=== PATIENT | female | born 1955 | race Caucasian/White ===

== ENCOUNTER → 2017-02-11 | Outpatient (CLI) | payer OTHER ==
[~2017-02-11] MED LIST: ASP81TEC; ASP81TEC PO; CARV12.53 PO; CLOP75TA PO; CYAN100021 PO; FRS325T; HCT25T; HYDR-622 PO; MTP100TCR; NF-ESOM40C; OMEG1CAP51 PO; OMG1KC; PNT40TEC PO; POTA20TA15 PO; SIMV40TA2; SIMV40TA4 PO; TELM1TAB3 PO
--- NOTE | 2017-02-14 14:18 | Diagnostic Imaging Report ---
EXAMINATION: Bilateral screening mammogram 2D views with tomosynthesis. The current study was also evaluated with a Computer Aided Detection (CAD) system. INDICATION: Screening. PERSONAL HISTORY: No current complaints stated on the questionnaire. COMPARISON: 04/14/2015. FINDINGS: The breasts are composed of scattered fibroglandular densities. There are no masses, architectural distortion, or suspicious cluster of calcifications. Allowing for technique and positional differences, no suspicious change is seen. IMPRESSION: No significant change. ACR BI-RADS Category 2: Benign findings. Result letter will be mailed to the patient. Note: At least 10% of breast cancer is not imaged by mammography. Dictated by: Dictated on workstation # [id number]
== END ==
LOC: RAD 15:23
PROVIDERS: ATTEND Family Medicine
DX: Z12.31 Encounter for screening mammogram for malignant neoplasm of breast (principal)
CPT/HCPCS: 77067

== ENCOUNTER → 2018-07-20 | Outpatient (CLI) | payer OTHER ==
--- NOTE | 2018-07-20 18:59 | Diagnostic Imaging Report ---
INDICATION: Routine screening. COMPARISON: Comparison is made with prior mammograms from 02/11/2017 and 04/14/2015. TECHNIQUE: 2D and 3D bilateral screening mammography was performed with computer-aided detection (CAD) system. FINDINGS: Both breasts are heterogeneously dense, limiting the sensitivity of mammography. The parenchymal pattern is stable. No dominant mass or malignant-appearing microcalcifications are seen. The axillae are unremarkable. IMPRESSION: No mammographic features suspicious for malignancy are identified. ACR BI-RADS Category 1: Negative. Result letter will be mailed to the patient. Note: At least 10% of breast cancer is not imaged by mammography. Dictated by: Dictated on workstation # [id number]
== END ==
LOC: RAD 08:00
PROVIDERS: ATTEND Family Medicine
DX: Z12.31 Encounter for screening mammogram for malignant neoplasm of breast (principal)
CPT/HCPCS: 77067

== ENCOUNTER → 2019-11-12 | Outpatient (CLI) | payer OTHER ==
--- NOTE | 2019-11-12 10:14 | Diagnostic Imaging Report ---
INDICATION: Routine screening. COMPARISON: 07/20/2018 and 02/11/2017. TECHNIQUE: 2D and 3D bilateral screening mammography was performed with CAD. FINDINGS: Both breasts are heterogeneously dense, limiting the sensitivity of mammography. No mass or malignant appearing microcalcifications are seen. The axillae are unremarkable. IMPRESSION: No mammographic features suspicious for malignancy are identified. ACR BI-RADS Category 1: Negative. Result letter will be mailed to the patient. Note: At least 10% of breast cancer is not imaged by mammography. Dictated by: Dictated on workstation # [id number]
== END ==
LOC: RAD 07:53
PROVIDERS: ATTEND Family Medicine
DX: Z12.31 Encounter for screening mammogram for malignant neoplasm of breast (principal)
CPT/HCPCS: 77063; 77067

== ENCOUNTER → 2020-10-29 | Outpatient (CLI) | payer OTHER ==
--- NOTE | 2020-10-29 11:01 | Diagnostic Imaging Report ---
PROCEDURE: US Renal Bilateral. TECHNIQUE: Multiple real-time grayscale images were obtained over the kidneys in various projections bilaterally. INDICATION: Renal insufficiency The right kidney measures 10.5 cm in length. Cortex is well-maintained. There is no mass, calculus or hydronephrosis seen. The left kidney measures 9.5 cm in length. 1.6 cm and a 2.4 cm cyst on the left. No solid mass, calculus or hydronephrosis is evident. Bilateral ureteral jets were not seen but no intrinsic abnormality of the bladder is seen. IMPRESSION: Left renal cysts. No acute abnormality is seen. Dictated by: Dictated on workstation # [id number]
== END ==
LOC: RAD 10:15
PROVIDERS: ATTEND Family Medicine
DX: N28.1 Cyst of kidney, acquired (principal)
CPT/HCPCS: 76770

== ENCOUNTER → 2020-11-12 | Outpatient (CLI) | payer OTHER ==
--- NOTE | 2020-11-12 13:28 | Diagnostic Imaging Report ---
Indication: Digital 2-D and 3-D screening mammograms with CAD are performed. COMPARISON: 10/2019, 06/2018 and 01/2017 FINDINGS: Scattered fibroglandular densities present. No mass or architectural distortion, spiculated lesion or suspicious calcifications. IMPRESSION: Stable negative mammograms BI-RADS Category 1 ACR BI-RADS Category 1: Negative. Result letter will be mailed to the patient. Note: At least 10% of breast cancer is not imaged by mammography. Dictated by: Dictated on workstation # [id number]
== END ==
LOC: RAD 10:00
PROVIDERS: ATTEND Family Medicine
DX: Z12.31 Encounter for screening mammogram for malignant neoplasm of breast (principal)
CPT/HCPCS: 77063; 77067

== ENCOUNTER → 2021-12-15 | Outpatient (CLI) | payer MEDICARE, OTHER ==
--- NOTE | 2021-12-15 12:19 | Diagnostic Imaging Report ---
INDICATION: Postmenopausal screening. COMPARISON: None FINDINGS: AP Spine L1-L4: [BMD (g/cm2): 1.358] [T-Score: 1.3] [Z-Score: 2.0] [BMD Previous: na] [BMD % Change: na] LT Hip Neck: [BMD (g/cm2): 0.853] [T-Score: -1.3] [Z-Score: -0.5] LT Hip Total: [BMD (g/cm2):0.897] [T-Score:-0.9] [Z-Score: -0.3] [BMD Previous: na] [BMD % Change: na] RT Hip Neck: [BMD (g/cm2):0.862] [T-Score:-1.3] [Z-Score:-0.4] RT Hip Total: [BMD (g/cm2):0.834] [T-score:-1.4] [Z-Score:-0.8] [BMD Previous:na] [BMD % Change:na] *Indicates significant change from prior examination based on 95% confidence level. World Health Organization criteria for BMD interpretation classify patients as Normal (T-score at or above -1.0), Osteopenic (T-score between -1.0 and -2.5) or Osteoporotic (T-score at or below -2.5). LIMITATIONS AND MODIFICATION: None. FRACTURE RISK (FRAX SCORE): The ten year probability of (%): Major Osteoporotic Fracture: [8.3] Hip Fracture: [0.8] IMPRESSION: 1. Osteopenia (Low bone mass). 2. Baseline examination. 3. See below National Osteoporosis Foundation guidelines on when to potentially initiate pharmacologic therapy. Based on the National Osteoporosis Foundation Guidelines, pharmacologic treatment should be initiated in any of the following, unless clinical conditions suggest otherwise: * Any patient with prior fragility fracture of the hip or vertebrae. A spine fracture indicates 5X risk for subsequent spine fracture and 2X risk for subsequent hip fracture. * Osteoporosis (T-score <-2.5). * Postmenopausal women and men age 50 and older with low bone mass/osteopenia (T-score between -1.0 and -2.5) by DXA and 10-year major osteoporotic fracture greater than 20% or a 10-year probability of hip fracture greater than 3%. These fracture risks are supplied above in the FRAX score, if applicable. * Clinician judgement and/or patient preferences may indicate treatment for people with 10-year fracture probabilities above or below these levels. Dictated by: Dictated on workstation # [id number]
--- NOTE | 2021-12-15 12:58 | Diagnostic Imaging Report ---
INDICATION: Routine screening. COMPARISON: 11/12/2020 and 11/12/2019. TECHNIQUE: 2D and 3D bilateral screening mammography was performed with CAD. FINDINGS: Both breasts are heterogeneously dense, limiting the sensitivity of mammography. The parenchymal pattern is stable. No mass or malignant-appearing microcalcifications are seen. The axillae are unremarkable. IMPRESSION: No mammographic features suspicious for malignancy are identified. ACR BI-RADS Category 1: Negative. Result letter will be mailed to the patient. Note: At least 10% of breast cancer is not imaged by mammography. Dictated by: Dictated on workstation # [id number]
== END ==
LOC: RAD 08:57
PROVIDERS: ATTEND Family Medicine
DX: Z12.31 Encounter for screening mammogram for malignant neoplasm of breast (principal); Z13.820 Encounter for screening for osteoporosis; M85.80 Other specified disorders of bone density and structure, unspecified site; Z78.0 Asymptomatic menopausal state
CPT/HCPCS: 77063; 77067; 77080

== ENCOUNTER 2023-02-05 21:51 | Emergency (ER) | payer MEDICARE ==
[~2023-02-05] VITALS: Ht 172.7 cm; Wt 90.7 kg
[~2023-02-05 21:51] MED LIST changes: +ACET-2267 PO; +AMOX1TAB12 PO; +ASPI-1238 PO; +DOXY100T2 PO; +OMEG-145 PO; +PANT40TA52 PO; +POTA-185 PO; +SIMV40TA25 PO; +TELM1TAB35 PO
[2023-02-05] MEDS ORDERED: PHENAZOPYRIDINE 100 MG TABLET PO ONE (22:30)
--- NOTE | 2023-02-05 22:32 | ED GU-Female ---
General Chief Complaint: - Reproductive Stated Complaint: BURNING W URINATION Nursing Triage Note: PT AMB TO RM 3 WITH CC OF BURNING WITH URINATION SINCE APPROX 1900. PT STATES SHE FEELS IF SHES NOT EMPTYING HER BLADDER. PT DENIES PAIN AT REST Source: patient Exam Limitations: no limitations History of Present Illness Date Seen by Provider: Feb 05, 2023 Time Seen by Provider: 22:20 Initial Comments Patient is a 67-year-old female who presents to the emergency room with a chief complaint of burning with urination onset suddenly this evening. She also has h ad hematuria. She reportedly has a history of frequent urinary tract infections. She denies fevers, chills. She is not nauseous. She states that her last urinary tract infection was approximately 4 months ago. She reports suprapubic abdominal discomfort and feeling like she is not adequately emptying her bladder. No vaginal complaints. No constipation. Timing/Duration: just prior to arrival Severity/Quality: severe, aching, burning Location: vaginal, urethral Radiation: none Activities at Onset: eating (at dinner) Prior Genitourinary Problems: similar symptoms Associated Symptoms: dysuria, lower back pain ((more chronic)) Allergies and Home Medications Allergies Coded Allergies: No Known Drug Allergies (Verified , 02/07/08) Patient Home Medication List Home Medication List Reviewed: Yes Acetaminophen (Tylenol Extra Strength) 500 Mg Tablet, 500-1,000 MG PO Q8H PRN for PAIN-MILD (1-4), (Reported) Entered as Reported by: RADHA HUTTON on 11/12/22 1053 Amoxicillin/Potassium Clav (Amox Tr-K Clv 875-125 mg Tab) 875 Mg-125 Mg Tablet, 1 EACH PO BID Prescribed by: ELIZABETH MYERS on 11/13/22 1157 Aspirin (Aspirin EC) 81 Mg Tablet.dr, 81 MG PO DAILY, (Reported) Entered as Reported by: RADHA HUTTON on 11/12/22 1053 Carvedilol (Carvedilol) 12.5 Mg Tablet, 12.5 MG PO BID, (Reported) Entered as Reported by: RADHA HUTTON on 11/12/22 1053 Cefdinir (Cefdinir) 300 Mg Capsule, 300 MG PO BID Prescribed by: SWAPNIL CARROLL on 02/05/23 1816 Doxycycline Hyclate (Doxycycline Hyclate) 100 Mg Tablet, 100 MG PO BID Prescribed by: ELIZABETH MYERS on 11/13/22 1157 [place]-3/Dha/Epa/Fish Oil (Fish Oil 500 mg Softgel) 60 Mg-90 Mg-500 Mg Capsule, 1 EACH PO DAILY, (Reported) Entered as Reported by: RADHA HUTTON on 11/12/22 1053 Pantoprazole Sodium (Pantoprazole Sodium) 40 Mg Tablet.dr, 40 MG PO 1200, (Reported) Entered as Reported by: RADHA HUTTON on 11/12/22 1053 Potassium Chloride (K-Tab ER) 10 Meq Tablet.er, 20 MEQ PO DAILY, (Reported) Entered as Reported by: RADHA HUTTON on 11/12/22 1053 Simvastatin (Simvastatin) 40 Mg Tablet, 40 MG PO HS, (Reported) Entered as Reported by: RADHA HUTTON on 11/12/22 1053 Telmisartan/Hydrochlorothiazid (Telmisartan-Hctz 40-12.5 mg Tb) 40 Mg-12.5 Mg Tablet, 1 EA PO 1400, (Reported) Entered as Reported by: RADHA HUTTON on 11/12/22 1053 Review of Systems Review of Systems Constitutional: see HPI EENTM: no symptoms reported Respiratory: no symptoms reported Cardiovascular: no symptoms reported Gastrointestinal: no symptoms reported Genitourinary: burning, frequency, hematuria : No Musculoskeletal: no symptoms reported Skin: no symptoms reported Psychiatric/Neurological: Anxiety Past Merqvoe-Noppus-Wfufor Hx Patient Social History Tobacco Use?: No Substance use?: No Alcohol Use?: Yes Alcohol Frequency: Once in a while Immunizations Up To Date First/Initial COVID19 Vaccinat: VACCINATED Second COVID19 Vaccination Raz: VACCINATED Third COVID19 Vaccination Date: VACCINATED Seasonal Allergies Seasonal Allergies: No Past Medical History Surgery/Hospitalization HX: GERD, CHOLESTEROL, CARDIAC STENTS, HYSTER Surgeries: Yes (LAVH/BSO BY DR. LAMBERT 2007;CATH--STENTS X 2;EGD/COLONOSCOPY) Cardiac, Section, Coronary Stent, Hysterectomy, Oophorectomy Respiratory: No Cardiac: Yes Coronary Artery Disease, High Cholesterol, Hypertension Neurological: No Reproductive Disorders: Yes Female Reproductive Disorders: Menstrual Problems [employer] History: Hysterectomy, Menopausal Sexually Transmitted Disease: No Genitourinary: No Gastrointestinal: Yes Gastroesophageal Reflux, Diverticulosis, Polyps, Hiatal Hernia Musculoskeletal: No Endocrine: No HEENT: No Cancer: No Psychosocial: No Integumentary: No Blood Disorders: No Adverse Reaction/Blood Tranf: No Family Medical History Heart Disease Physical Exam Vital Signs Vital Signs - First Documented 02/05/23 22:06 Temp 37.1 Pulse 97 Resp 16 B/P (MAP) 172/109 (130) Pulse Ox 99 O2 Delivery Room Air Capillary Refill : Less Than 3 Seconds Height, Weight, BMI Height: 5'8" Weight: 202lbs. oz. 91.392361gj; 30.00 BMI Method:Stated General Appearance: WD/WN, mild distress, obese HEENT: PERRL/EOMI Cardiovascular: regular rate, rhythm Respiratory: lungs clear, normal breath sounds, no respiratory distress, no accessory muscle use Gastrointestinal: non tender, soft Back: no CVA tenderness Extremities: normal range of motion, normal inspection Neurologic/Psychiatric: alert, oriented x 3, other (anxious) Skin: normal color, warm/dry Progress/Results/Core Measures Suspected Sepsis SIRS Temperature: Pulse: 97 Respiratory Rate: 16 Blood Pressure 172 /109 Mean: 130 Results/Orders Lab Results Laboratory Tests Test 02/05/23 22:06 Range/Units Urine Color RED H Urine Clarity TURBID Urine pH 8.5 5-9 Urine Specific [place] 1.010 L 1.016-1.022 Urine Protein 3+ H NEGATIVE Urine Glucose (UA) TRACE H NEGATIVE Urine Ketones 2+ H NEGATIVE Urine Nitrite NEGATIVE NEGATIVE Urine Bilirubin 3+ H NEGATIVE Urine Urobilinogen 4.0 < = 1.0 MG/DL Urine Leukocyte Esterase 3+ H NEGATIVE Urine RBC (Auto) 3+ H NEGATIVE Urine RBC TNTC H /HPF Urine WBC 25-50 H /HPF Urine Squamous Epithelial Cells 0-2 /HPF Urine Crystals NONE /LPF Urine Bacteria MODERATE H /HPF Urine Casts NONE /LPF Urine Mucus SMALL H /LPF Urine Culture Indicated YES My Orders Orders - SWAPNIL CARROLL MD Ua Culture If Indicated (02/05/23 22:11) Phenazopyridine Tablet (Phenazopyridine (02/05/23 22:30) Urine Culture (02/05/23 22:06) Ceftriaxone Iv/Im (Ceftriaxone Iv/Im) (02/05/23 23:00) Lidocaine 1% Inj 20 Ml (Xylocaine 1% Inj (02/05/23 23:00) Lidocaine 1% Inj 10 Ml (Xylocaine 1% Inj (02/05/23 23:02) Medications Given in ED Vital Signs/I&O Capillary Refill : Less Than 3 Seconds Blood Pressure Mean: 130 Progress Note : Time: 23:26 Progress Note Patient seen and evaluated by me. Evaluation today includes physical exam, urinalysis. Pertinent physical exam findings well-developed well-nourished 67-year-old female in mild distress due to bladder spasm/pain. Her vital signs are stable. She is afebrile. Alert and oriented. Abdominal exam reveals some mild tenderness in the suprapubic region without involuntary guarding or rebound tenderness. Normal bowel sounds. Differential diagnosis includes urinary tract infection, renal stone, pyelonephritis. Patient's labs independently reviewed and interpreted by me. Patient has grossly bloody urine specimen with too numerous to count red blood cells. White blood cells are present, the urine is nitrite negative. She also has bilirubin noted in the urine as well as 2+ protein and 3+ ketones. She is afebrile, not tachycardic. She had no CVA tenderness. Is not vomiting. Low clinical suspicion for pyelonephritis at this time. No pain consistent with kidney stone. Patient was treated with 1 g of Rocephin IM. Will be placed on cefdinir. Encouraged oral hydration, cranberry juice. She was also given a dose of Pyridium orally. Advised follow-up with her primary care physician this week. Return precautions provided in both verbal and written format. All questions are sought and answered. Patient is stable for discharge Departure Impression Primary Impression: Urinary tract infection Qualified Codes: N30.01 - Acute cystitis with hematuria Disposition: HOME, SELF-CARE Condition: Improved Departure-Patient Inst. Decision time for Depature: 23:24 Referrals: GAVIN DANIELLE DO (PCP/Family) Primary Care Physician Patient Instructions: Urinary Tract Infection, Adult ED Add. Discharge Instructions: Drink plenty of fluids including electrolyte water, Pedialyte to stay hydrated. Start taking the antibiotics prescribed tomorrow evening. Take for 7 days. If you develop a fever after 24 to 48 hours on antibiotics, worsening pain, vomiting or any other worsening symptoms please come back to the emergency room for reevaluation. Your urine culture will be available in a couple of days. If we need to change her antibiotics we will contact you. Please follow-up with your primary care physician in a week Scripts Cefdinir (Cefdinir) 300 Mg Capsule 300 MG PO BID, #14 CAP 0 Refills Prov: SWAPNIL CARROLL MD 02/05/23 Copy Copies To 1: GAVIN DANIELLE KATHRYN M MD Feb 05, 2023 22:32
[2023-02-05 22:36] LABS: BACTERIA,URINE MODERATE /HPF; BILIRUBIN,URINE 3+ (NEGATIVE); CLARITY,URINE TURBID; COLOR,URINE RED; GLUCOSE, URINE (UA) TRACE (NEGATIVE); KETONES,URINE 2+ (NEGATIVE); LEUKOCYTE ESTERASE ,URINE 3+ (NEGATIVE); NITRITE,URINE NEGATIVE (NEGATIVE); PH,URINE 8.5 (5-9); PROTEIN,URINE 3+ (NEGATIVE); RBC,URINE TNTC /HPF; SQUAMOUS EPITHELIAL CELL,UR 0-2 /HPF; WBC,URINE 25-50 /HPF
[2023-02-05] MEDS ORDERED: LIDOCAINE 1% INJ 20 ML VIAL INJ ONE (23:00)
[2023-02-05] MEDS ORDERED: cefTRIAXone 1,000 MG VIAL IV/IM IM ONE (23:00)
[2023-02-05] MEDS ORDERED: LIDOCAINE 1% INJ 10 ML VIAL ONE (23:02)
[2023-02-05] MEDS ORDERED: CEFD300C3 PO (23:26)
[2023-02-05 23:29] VITALS: BP 151/84
== END 2023-02-05 23:32 | disposition home or self-care (01) ==
LOC: EDUNIT# 21:51 → ER 21:53
DX: N39.0 Urinary tract infection, site not specified (principal); E66.9 Obesity, unspecified; Z68.30 Body mass index [BMI] 30.0-30.9, adult
CPT/HCPCS: 81000; 87077; 87088; 87186; 99284

== ENCOUNTER → 2023-02-08 | Outpatient (CLI) | payer MEDICARE, OTHER ==
[~2023-02-08] MED LIST changes: +CEFD300C3 PO
--- NOTE | 2023-02-08 08:59 | Diagnostic Imaging Report ---
INDICATION: Routine screening. COMPARISON: 12/15/2021 and 11/12/2020. TECHNIQUE: 2D and 3D bilateral screening mammography was performed with CAD. FINDINGS: Both breasts are heterogeneously dense, limiting the sensitivity of mammography. The parenchymal pattern is stable. No mass or malignant-appearing microcalcifications are seen. The axillae are unremarkable. IMPRESSION: No mammographic features suspicious for malignancy are identified. ACR BI-RADS Category 1: Negative. Result letter will be mailed to the patient. Note: At least 10% of breast cancer is not imaged by mammography. Dictated by: Dictated on workstation # [id number]
== END ==
LOC: RAD 07:55
PROVIDERS: ATTEND Family Medicine
DX: Z12.31 Encounter for screening mammogram for malignant neoplasm of breast (principal)
CPT/HCPCS: 77063; 77067